=== PATIENT | female | born 1960 | race Caucasian/White ===

== ENCOUNTER → 2017-06-18 | Outpatient (CLI) | payer BC, OTHER ==
--- NOTE | 2017-06-18 14:16 | DIAGNOSTIC IMAGING REPORT ---
R KNEE 4 OR MORE HISTORY: 56 years-old Female RIGHT KNEE PAIN acute right knee pain COMPARISON: None available TECHNIQUE: AP view of the bilateral knees with sunrise, AP axial and lateral views of the right knee FINDINGS: Mild to moderate medial and patellofemoral compartment osteoarthritis. There is mild soft tissue swelling about the right knee without acute fracture or dislocation. Moderate sized joint effusion. No opaque foreign body. IMPRESSION: 1. Moderate-sized joint effusion without acute fracture or dislocation. 2. Mild to moderate medial and patellofemoral compartment osteoarthritis. The above report was generated using voice recognition software. It may contain grammatical, syntax or spelling errors. Electronically signed by: Calos Jj M.D. 06/18/2017 2:15 PM Dictated Date/Time: 06/18/2017 2:13 PM
== END | disposition home or self-care (01) ==
LOC: C.RDSM 13:59
PROVIDERS: ATTEND Family Medicine
DX: M25.561 Pain in right knee (principal); M25.461 Effusion, right knee; M17.11 Unilateral primary osteoarthritis, right knee

== ENCOUNTER 2024-01-17 04:48 | Observation (INO) ==
--- NOTE | 2023-12-11 14:01 | PAT Medication Instructions ---
Medication Instructions Date of Service December 11, 2023 Home Medications calcium 500 mg (as carbonate)-vitamin D3 3.125 mcg (125 unit) tablet 2 tab PO QAM multivitamin 1 tab PO QAM DO NOT take the morning of surgery calcium 500 mg (as carbonate)-vitamin D3 3.125 mcg (125 unit) tablet 2 tab PO QAM multivitamin 1 tab PO QAM MORNING OF SURGERY: NOTHING TO EAT OR DRINK AFTER MIDNIGHT Other Notes If you have any questions please call us at [phone] or [phone] or [phone] or [phone]
--- NOTE | 2023-12-17 10:36 | Anesthesiology Consultation ---
Date of Service December 17, 2023 Assessment & Plan (1) Encounter for pre-operative examination: Plan - awaiting surgeon ordered PCP pre-operative evaluation, Dr. Ady Lanier 12/24. PAT testing to be faxed to PCP. - Patient and her both expressed preference for patient to remain overnight rather than as outpatient joint when booking was confirmed. OR and surgeon's office made aware. Chart Review Chart Review: Pending: Refer to Additional Notes / Consult section and Patient seen in Pre Admission Testing Teaching & Discussion Pre-Anesthesia Teaching/Discussion Notes: Instructed NPO after midnight before surgery, except medications with 15 cc of water. Medication instructions provided according to the PAT guidelines. History Surgery Operation Date: 01/17/24 07:00 Proposed Procedures p Right Total Knee Arthroplasty - Suman Sneed MD Height/Weight Height: 5 ft 8 in Weight: 99.1 kg Allergies Allergy/AdvReac Type Severity Reaction Status Date / Time amoxicillin Allergy Intermediate Rash Verified 12/07/23 09:39 cat dander Allergy Intermediate Itching/Watery Verified 12/07/23 09:39 Eyes, Congestion horse dander Allergy Intermediate Itching/Watery Verified 12/07/23 09:39 Eyes, Congestion penicillin V Allergy Intermediate Rash Verified 12/07/23 09:39 Sulfa (Sulfonamide Allergy Intermediate skin pain, Verified 12/17/23 10:29 Antibiotics) denies rash Medications Home Medications Medication Instructions Recorded Confirmed Last Taken calcium 500 mg (as 2 tab PO QAM 12/07/23 12/07/23 Unknown carbonate)-vitamin D3 3.125 mcg (125 unit) tablet multivitamin 1 tab PO QAM 12/07/23 12/07/23 Unknown Past Medical History Medical History (Updated 12/19/23 @ 13:57 by Nila Mclaughlin PA-C) Adverse effect of anesthesia Vertigo after endometrial ablation DVT (deep venous thrombosis) (~2012) bilat legs> PEs bilat lungs-OCP d/c History of anemia History of palpitations (~2012) with PEs, denies issues at this time History of tachycardia (~2002) elevated caffeine intake-denies issues at this time Hx pulmonary embolism (~2012) warfarin for 6 months - no longer taking Patient denies h/o stroke, seizures, heart attack, heart failure, DM, HTN, or blood transfusions. Exercise / Class Metabolic Activity II 4-5 Yardwork/Stairs/Walk up hill (denies chest discomfort or shortness of breath with one flight of stairs) Past Surgical History Surgical History History of endometrial ablation Hx of colonoscopy 11/2023 Hx of wisdom tooth extraction Status post incision and drainage Right Knee "water balloon" Past Anesthesia History No Family Hx of Anesthesia Complications History of PONV No Hx of PONV and No Hx of Motion Sickness Social History Smoking Status: Never smoker Do You Dip or Chew Tobacco: No Hx Alcohol Use: Yes alcohol intake frequency: a few times a month (during football season) Hx Substance Use: No substance use type: does not use Review of Systems Snoring, denies witnessed apneas. Patient denies chest pain, shortness of breath, dyspnea on exertion, reflux, fever, chills, cough, wheezing, or palpitations. Physical Exam Vital Signs Vitals BP 121/82 P 79 TEMP 98.0 SP02 95% on RA RESP 18 Physical Patient resting comfortably in chair in no acute distress, alert and oriented, responding appropriately throughout visit Full cervical extension range of motion without pain TMD 3.5 finger breadths Mallampati Score 2 Dentition: several crowns, denies chipped or loose teeth, implants or bridges Lungs: normal respiratory effort. Good air movement, clear throughout to auscultation, no adventitious breath sounds Cardiac: regular rate and rhythm, no murmurs noted Carotid arteries: negative bruit bilat Lab Results Anesthesia Preop Results Results Anesthesia Widget: WBC 3.87 K/ul (4.8-10.8) L 12/17/23 Hgb 12.1 g/dl (12.0-16.0) 12/17/23 Hct 36.8 % (37.0-47.0) L 12/17/23 Plt 214 K/uL (130-400) 12/17/23 Na 142 mmol/L (136-145) 12/17/23 K 4.4 mmol/L (3.5-5.1) 12/17/23 Cl 106 mmol/L (98-107) 12/17/23 CO2 29 mmol/L (21-32) 12/17/23 BUN 13 mg/dl (6-23) 12/17/23 Creat 0.75 mg/dl (0.6-1.2) 12/17/23 Glucose Level 108 mg/dl (70-99(Fasting)) H 12/17/23 PT 10.3 Seconds (9.0-12.0) 12/17/23 PTT 24 Seconds (21-31) 12/17/23 INR 0.9 (0.9-1.1) 12/17/23 Urine Color Yellow 12/17/23 Urine Appearance Clear (Clear) 12/17/23 Urine pH 7.5 (4.5-7.5) 12/17/23 Urine Specific [place] 1.022 (1.000-1.030) 12/17/23 Urine Protein Negative (Negative) 12/17/23 Urine Glucose (UA) Negative (Negative) 12/17/23 Urine Ketones Trace (Negative) H 12/17/23 Urine Blood Negative (Negative) 12/17/23 Urine Nitrite Negative (Negative) 12/17/23 Urine Bilirubin Negative (Negative) 12/17/23 Urine Urobilinogen Negative (Negative) 12/17/23 Urine Leukocyte Esterase Trace (Negative) H 12/17/23 Urine WBC (Auto) 0-5 /hpf (0-5) 12/17/23 Urine RBC (Auto) 0-2 /hpf (0-2) 12/17/23 Urine Hyaline Casts (Auto) 0-2 /lpf (0-2) 12/17/23 Urine Epithelial Cells (Auto) 0-2 /hpf (0-2) 12/17/23 Urine Bacteria (Auto) None Seen (None Seen) 12/17/23 Blood Type A Negative 12/17/23 Antibody Screen NEGATIVE 12/17/23 Testing Electrocardiogram Date: 12/17/23 NSR, rate 71 bpm
--- NOTE | 2023-12-21 16:59 | History & Physical Report ---
Date of Service December 21, 2023 Assessment & Plan (1) Osteoarthritis of right knee: Plan: PRE-OP Diagnosis: Right knee degenerative joint disease Planned Procedure: Right total knee arthroplasty Plan: Patient is scheduled to undergo this procedure at the [facility] with Dr. Sneed on January 17, 2024. Risks and complications of the procedure such as: Infection, bleeding, pain, scarring, nerve blood vessel damage, weakness, wound problems, stiffness, incomplete relief of symptoms, hardware failure, hardware loosening, wear, fracture, tendon or ligament injury, blood clots, embolism, cardiac, stroke and were explained to the patient at her visit today and informed consent for the procedure was obtained. We will need to obtain preoperative medical clearance from the patient's primary care provider. She states she has an appointment scheduled for December 24. Patient states that she met with anesthesia on December 16 and while there obtained a CBC with differential, complete metabolic panel, PT/INR, blood type and screen, urinalysis, urine culture and sensitivity, EKG and a nasal culture for MRSA. During today's visit we reviewed the total knee packet. I provided the patient with paperwork to obtain obtaining a handicap placard for her vehicle. I provided her with information about lectures offered by [facility] in regards to joint replacement surgery. I provided her with an order to obtain a walker. I recommended that she purchase a shower chair and raised toilet seat. We discussed discharge planning from the hospital. Patient states she will most likely do in-home physical therapy for the first 2 weeks before transitioning to outpatient physical therapy. I advised the patient that she will be provided with a prescription for narcotic pain medication for postoperative pain control. We will have her on Xarelto for the first 30 days postoperatively for blood clot prevention due to her history of PEs. Patient verbalized understanding of all information provided during today's visit. Patient be scheduled for 2-week postoperative follow-up visit with on January 31. This chart was completed utilizing [employer] voice recognition software. Grammatical errors, random word insertions, pronoun errors, and in complete sentences are an occasional consequence of the system. Any questions or concerns about the content, text, or information contained within the body of this dictation should be addressed directly to the physician for clarification. History of Present Illness Chief Complaint: Chief Complaint: Right knee pain Primary Care Provider: NO PCP History of Present Illness (including history relevant to procedure): This 63-year-old female presents to clinic today for preoperative history and physical. Patient states that she has had persistent right knee pain since 2018. She states that in 2023 she started noticing pain in her left knee. She is not sure if this is compensatory or not. In regards to the right knee she states the pain has not subsided with physical therapy or corticosteroid injections. She states she also had aspirated. Pain increases when she walks downhill or does steps. She has been using meloxicam for a long period of time but does not feel it is very effective. Patient localizes most of the pain over the medial aspect of her knee and feels a crunching sensation with range of motion. She is elected proceed with surgical intervention. Review Of Systems: A 12 point review of systems is performed is unremarkable except for those things stated in the HPI and past medical history. Past Medical History: Problems: Tear of medial meniscus of right knee Effusion of right knee Primary osteoarthritis of right knee Right knee pain Knee pain, right History of DVT and pulmonary emboli Procedure History Procedure Procedure Date Comments None Allergies and Sensitivities: penicillins(rash) sulfa drugs(achy) Current Home Meds: (Last Updated 12/20 13:41) calcium citrate (calcium (as calcium citrate) 250 mg oral tablet) multivitamin 1 tab PO Daily Initial Wt: 12/20 97.2 kg 214 lb Allergies Allergy/AdvReac Type Severity Reaction Status Date / Time amoxicillin Allergy Intermediate Rash Verified 12/07/23 09:39 cat dander Allergy Intermediate Itching/Watery Verified 12/07/23 09:39 Eyes, Congestion horse dander Allergy Intermediate Itching/Watery Verified 12/07/23 09:39 Eyes, Congestion penicillin V Allergy Intermediate Rash Verified 12/07/23 09:39 Sulfa (Sulfonamide Allergy Intermediate skin pain, Verified 12/17/23 10:29 Antibiotics) denies rash Home Medications Medication Instructions Recorded Confirmed Type calcium 500 mg (as 2 tab PO QAM 12/07/23 12/07/23 History carbonate)-vitamin D3 3.125 mcg (125 unit) tablet multivitamin 1 tab PO QAM 12/07/23 12/07/23 History Past Med/Surg History Problem List (Updated 12/21/23 @ 16:58 by Isrrael Dewitt PA-C) Osteoarthritis of right knee Encounter for pre-operative examination Medical History (Updated 12/21/23 @ 16:58 by Isrrael Dewitt PA-C) DVT (deep venous thrombosis) (~2012) bilat legs> PEs bilat lungs-OCP d/c Adverse effect of anesthesia Vertigo after endometrial ablation History of anemia History of palpitations (~2012) with PEs, denies issues at this time History of tachycardia (~2002) elevated caffeine intake-denies issues at this time Hx pulmonary embolism (~2012) warfarin for 6 months - no longer taking Surgical History History of endometrial ablation Status post incision and drainage Right Knee "water balloon" Hx of wisdom tooth extraction Hx of colonoscopy 11/2023 Social History Smoking Status: Never smoker Second Hand Exposure: No; Do You Dip or Chew Tobacco: No; Hx Alcohol Use: Yes Hx Substance Use: No Preferred Language: Uzbek Communication Ability: Effective School Psychological Examiner Required: No Beliefs That Will Affect Care: None Current Living Situation: Spouse Feels Safe at Home: Yes Assistive Devices: Glasses Physical Exam Physical Exam: Physical Exam: (relevant to the procedure, including heart and lung evaluation) General: Alert and oriented x 3 with proper grooming and hygiene Eyes: Pupils are equal reactive to light with accommodation. Extraocular movements are intact Throat: Posterior oropharynx clear with absence of edema, erythema or exudate. Dentition is appropriate Cardiac: Regular rate and rhythm with no murmurs or gallops appreciated Lungs: Clear to auscultation throughout no wheezing, rales or rhonchi Abdomen: Obese, nondistended, nontender with NABS Extremities: Right knee; range of motion is from 2 degrees of extension to 112 degrees of flexion. She has visible varus malalignment. She experiences medial joint tenderness when the knee is palpated in the flexed position. I was able to slightly manipulate her patella. Crepitation. She had no laxity with varus or valgus stressing. AP drawer sign and Arcelia test are negative. Patient is neurovascularly intact in the lower extremity. Neuro: Cranial nerves II through XII are intact no motor or sensory deficit Skin: Normal in appearance no open skin areas or discharge Results & Data Diagnostic Findings Studies (relevant to the procedure): X-rays done today4 viewsof the bilateral knees demonstrate in the right knee she has severe [id number] osteoarthritiswith tricompartmental osteophyte formation.This is significantly worsened from her previous x-rays done back in 2018.In the left knee she has moderate osteoarthritis with medial joint space narrowingand small osteophytes.
[2024-01-17] MEDS: LR 60ML/HR IV SCH (05:53)
[2024-01-17] MEDS: FAMOTIDINE 20 MG TAB PO SCH (05:56)
[2024-01-17] MEDS: Scopolamine 1 MG TDSY TD SCH (05:56)
[2024-01-17] MEDS: traMADol HCL 50 MG TABLET PO SCH (05:56)
[2024-01-17] MEDS: ACETAMINOPHEN 500 MG TAB PO SCH ×2 (05:56→13:33)
[2024-01-17] MEDS: dexAMETHasone**PF** 10 MG/ML VIAL IV SCH (05:57)
[2024-01-17] MEDS: LR 500ML BOLUS, THEN 15ML/HR IV SCH (06:00)
[2024-01-17] MEDS ORDERED: BUPIVACAINE 0.5 % 5 MG/1 ML PF 10ML VIAL ONE (06:20)
[2024-01-17] MEDS ORDERED: ROPIVACAINE 0.5% 5 MG/ML 30 ML VIAL ONE (06:20)
[2024-01-17] MEDS ORDERED: MIDAZOLAM HCL 1 MG/ML 2ML VIAL ONE (06:25)
[2024-01-17] MEDS ORDERED: fentaNYL citrate PF 100 MCG/2 ML VIAL ONE (06:25)
[2024-01-17] MEDS ORDERED: PROPOFOL IV EMULSION 10 MG/ML 20 ML VIAL IV ONE ×3 (06:28→08:18)
[2024-01-17] MEDS ORDERED: KETAMINE HCL 10MG/ML SYR ONE (06:30)
--- NOTE | 2024-01-17 06:38 | History & Physical Bridge Note ---
Date of Service January 17, 2024 History & Physical Bridge Note I have examined the patient, reviewed the History & Physical and in the interval since the performance of the History & Physical I have noted the following changes of clinical significance: no changes noted
[2024-01-17] MEDS: TRANEXAMIC ACID 1,000 MG **IV Pre-op IV SCH (06:45)
[2024-01-17] MEDS: ceFAZolin 2000MG 2,000 MG/15 ML SYR IV SCH ×2 (07:00→15:59)
[2024-01-17] MEDS: ROPIVACAINE 0.5% HCL/PF 246 MG, Ketorolac (*for OR use only*) 30 MG, EPINEPHrine 30MG/3... INFIL SCH (07:36)
[2024-01-17] MEDS: ORTHO JOINT ANESTHETIC ONE (07:37)
[2024-01-17] MEDS ORDERED: fentaNYL citrate PF 100 MCG/2 ML VIAL IV PRN (08:06)
[2024-01-17] MEDS ORDERED: ATROPINE SULFATE 0.1 MG/ML 10ML SYR IV PRN (08:06)
[2024-01-17] MEDS ORDERED: ePHEDrine sulfate 50 MG/ML AMP IV PRN (08:06)
[2024-01-17] MEDS ORDERED: DROPERIDOL 5 MG/2 ML VIAL IV PRN (08:06)
[2024-01-17] MEDS: TRANEXAMIC ACID 1,000 MG **IV Intra-op IV SCH (08:31)
[2024-01-17] MEDS ORDERED: PHENYLEPHRINE 100MCG/ML 5ML SYR ONE (08:36)
--- NOTE | 2024-01-17 09:11 | Operative Report ---
Post Operative Report Pre & Post Diagnosis Operation Date: 01/17/24 07:00 Pre-Op Diagnosis: Right Knee Osteoarthritis Post-Op Diagnosis: Right Knee Osteoarthritis I identified the patient and participated in the time-out.: Yes Procedure Operation Date: 01/17/24 07:00 Actual Procedures p Right Total Knee Arthroplasty(Right) - Suman Sneed MD Surgeon Suman Sneed MD Nursing Home Assistant Administrator Renaldo Oneil DO and STEPHAN Dewitt PA-C. Estimated Blood Loss 100 Findings Consistent with Post-Op Diagnosis Specimens Right knee bone and soft tissue contents Anesthesia Type Spinal MAC Complications none Disposition Disposition: Recovery Room Indications 63-year-old female with right knee osteoarthritis refractory to conservative management. X-rays demonstrate duet-ca-[id number] disease in the medial compartment and tricompartmental osteophyte formation. I had a long discussion with her about the risks and benefits of surgery, alternatives to surgery, and expected outcomes. After reviewing all these she elected to proceed with surgery. All questions were answered. Informed consent was signed. Description of Procedure Patient was identified in the preoperative holding area where the surgical site, right knee, was marked. Spinal anesthetic was placed by anesthesia. Patient was brought back to the operating room, placed on the operating room table, and IV sedation was administered. A bump was placed underneath the ipsilateral hip. All bony prominences were padded. Perioperative antibiotics and tranexamic acid were administered. Exam under anesthesia was performed. This demonstrated patient's range of motion to be 8-105 degrees. Stable to varus and valgus at 30 degrees. The surgical site was prepped and draped in the normal sterile fashion. Prior to incision a multidisciplinary timeout was called. All in the room were in agreement. We began by exsanguinating the limb with an Esmarch bandage. Tourniquet was inflated to 250 mmHg. A 14 cm long incision was made over the anterior aspect of the knee. I dissected through the subcutaneous tissues to the level of the fascia. Full-thickness flaps were raised above the fascia. A median parapatellar arthrotomy was made. Half the fat pad was excised. A medial release was performed with Bovie electrocautery on the proximal tibia. Synovitis in the knee and suprapatellar pouch was removed. The patella was then everted and held with 2 towel clips. The thickness of the patella was measured at 24 mm. Patellar resection was performed. Caliper showed the patella thickness now to be 14 mm. A size 38 trial was placed and had a great fit. The 3 drill holes were placed then the trial button was placed. The patellar thickness was now 24 mm which I was very happy with. The patellar trial was then removed, and the knee was flexed up. Retractors were placed to protect the MCL and LCL. Osteophytes were removed from the femoral condyles and intercondylar notch. The ACL and PCL were excised. Intramedullary drill guide was drilled into the femur. Distal femoral cutting guide was placed set at 5 degrees of valgus to resect 11 mm off the distal femur. Distal femoral resection was made without difficulty. The tibia was then exposed. The lateral meniscus was sharply excised. The tibial cutting jig was positioned in line with the tibial shaft in the coronal plane and with 3 degrees of posterior slope in the sagittal plane to resect 4 mm off the more involved compartment. The jig was then pinned in position and the tibial cut was made. We then brought the knee into full extension. Lamina spreaders were placed. The medial meniscus was excised. The extension block was then placed for 6 mm thickness poly. This gave us full extension and excellent stability to varus and valgus stress. Next the extension block was removed, the knee was flexed up, collateral ligaments were protected, and the epicondylar axis and Whitesides line were marked out on the distal femoral cut. Femoral sizing guide was placed. External rotation was set at 3 degrees so that the posterior cut would be parallel with the epicondylar axis and perpendicular with Whitesides line. The patient sized to a size 6 femur. 2 pins were then placed through the jig into the distal femur. The jig was removed and the appropriately sized 4-in-1 cutting jig was placed over the pins, then fixated to the bone using threaded, headed pins. We confirmed that we would not notch the femur with our anterior cut. Our 4 cuts were then made. The cutting jig was removed. The flexion block was then placed with the knee held at 90 degrees. There was excellent stability to varus and valgus at 90 degrees with no gapping medially or laterally. Next the box cutting jig was placed on the distal femur. The box cut was made and the femoral trial was impacted into position. Lug holes were drilled in the distal femur. We then reexposed the tibia. The tibia was sized to a 6 for a fixed-bearing component. The tibial tray with a 6 mm thickness polyethylene liner was placed on the cut tibial surface and the knee was brought through a full range of motion. There was excellent stability to varus valgus stress throughout a full range of motion, which was approximately 0-120 degrees. Bovie electrocautery was used to agustina the tibia at the site where the tibial tray rested in full extension. We then flexed up the knee, removed the polyethylene liner, and pinned the tibial tray into position to match the cautery agustina. The intramedullary drill followed by the keel punch were used to prepare the tibia. Next the trial components were removed. I then injected the posterior capsule and periosteum with the periarticular injection cocktail. The bone cuts were then irrigated and dried while the cement was mixed on the back table. The femoral component was cemented on first. Excess cement was removed. A lap sponge was placed over the femoral component for protection, then the tibia was subluxated anteriorly. The all polyethylene tibial component was then cemented in place. Again excess cement was removed. The knee was brought into full extension and held there until the cement cured. The patella was cemented and clamped. Dilute Betadine solution was then allowed to soak in the knee while the cement cured. Once the cement was fully cured, the knee was irrigated out, the tourniquet was let down and meticulous hemostasis was ensured. The knee was brought through a full range of motion. I was were very happy with the patella tracking and the stability. We then began to close. Interrupted 0 Vicryl suture was used to repair the patellar retinaculum in [id number] fashion. The quadriceps and patellar tendons were run with #1 Vicryl. The deep dermal layer was closed with interrupted 2-0 Vicryl. Dermabond and Zipline was used for the skin, followed by a Silverlon dressing. A compressive Mateo wrap was placed and the knee was placed into a knee immobilizer. Patient's sedation was lifted and was transferred to recovery room in stable condition. Summary of implants: Depuy Attune Posterior Stabilized Cemented Femur, size 6 right Attune All-polyethylene tibial component, posterior stabilized 6 mm thickness, size 6 Attune patella medialized dome, size 38 2 batches of Palacos high viscosity bone cement Postoperative course: Patient will be admitted to the floor for pain control and monitoring. Weightbearing as tolerated with a walker with no knee range of motion for 48 hours. Xarelto for DVT prophylaxis. I attest to the content of the Intraoperative Record and any orders documented therein. Any exceptions are noted below.
[2024-01-17] MEDS ORDERED: ALUMINUM/MAGNESIUM SUSP 30 ML UDC PO PRN (09:12)
[2024-01-17] MEDS ORDERED: METOCLOPRAMIDE HCL INJ 5 MG/ML 2 ML VIAL IV PRN (09:12)
[2024-01-17] MEDS ORDERED: MAGNESIUM HYDROXIDE SUSP 30 ML UDC PO PRN (09:12)
[2024-01-17] MEDS ORDERED: NALOXONE HCL 0.4 MG/1 ML VIAL/CARP IV PRN (09:12)
[2024-01-17] MEDS ORDERED: ONDANSETRON INJ 2 MG/ML 2 ML VIAL IV PRN (09:12)
[2024-01-17] MEDS ORDERED: HYDROmorphone INJ 0.5 MG/0.5 ML SYR IV PRN (09:12)
[2024-01-17] MEDS ORDERED: oxyCODONE HCL IR 5 MG TAB (IMMEDIATE RELEASE) PO PRN (09:12)
[2024-01-17] MEDS ORDERED: diphenhydrAMINE 50 MG/ML VIAL IV PRN (09:12)
[2024-01-17] MEDS ORDERED: bisacodyL 10 MG SUPP PR PRN (09:12)
--- NOTE | 2024-01-17 09:12 | Operative Report ---
Post Operative Report Pre & Post Diagnosis Operation Date: 01/17/24 07:00 Pre-Op Diagnosis: Right Knee Osteoarthritis Post-Op Diagnosis: Right Knee Osteoarthritis I identified the patient and participated in the time-out.: Yes Procedure Operation Date: 01/17/24 07:00 Actual Procedures p Right Total Knee Arthroplasty(Right) - Suman Sneed MD Surgeon Suman Sneed MD Exercise Science Internship Renaldo Oneil DO; Tho Dewitt PAGeremias Estimated Blood Loss 100 Findings Consistent with Post-Op Diagnosis Specimens knee bone and soft tissue Description of Procedure I was present during the entire case assisting with positioning, prepping, draping, wound retraction, wound closure, dressing and immobilizer placement. Fellow also present. I served as an extra set of hands during the case. Please see Dr. Sneed procedure note for specifics of the case. I attest to the content of the Intraoperative Record and any orders documented therein. Any exceptions are noted below.
--- NOTE | 2024-01-17 09:17 | Operative Report ---
Post Operative Report Pre & Post Diagnosis Operation Date: 01/17/24 07:00 Pre-Op Diagnosis: Right Knee Osteoarthritis Post-Op Diagnosis: Right Knee Osteoarthritis I identified the patient and participated in the time-out.: Yes Procedure Operation Date: 01/17/24 07:00 Actual Procedures p Right Total Knee Arthroplasty(Right) - Suman Sneed MD Surgeon Suman Sneed MD Tube Winder Renaldo Oneil DO; Tho Dewitt PA-Dennis Estimated Blood Loss 100 Findings Consistent with Post-Op Diagnosis Specimens Right knee bone and soft tissue Description of Procedure Patient was brought to the operative suite where she underwent anesthesia. The right lower extremity was prepped and draped in usual sterile fashion. A surgical timeout was performed. The patient went right total knee arthroplasty, please see Dr. Sneed's operative report for full details. I was present and assisted with patient positioning,limb positioning, soft tissue retraction, hemostasis, surgical approach, bony resections, hardware placement, wound closure, postoperative dressing placement. Patient was taken to the recovery room in stable condition. I attest to the content of the Intraoperative Record and any orders documented therein. Any exceptions are noted below.
--- NOTE | 2024-01-17 09:44 | XRay Report ---
XR knee RT 1 or 2V routine HISTORY: 63 years-old Female Surgical Post Op right knee arthroplasty COMPARISON: 12/21/2023 TECHNIQUE: 2 views of the right knee FINDINGS: Total joint arthroplasty with patellar resurfacing. Expected postoperative soft tissue swelling with deep tissue air. No acute fracture or unexpected opaque foreign body. IMPRESSION: Total joint arthroplasty with expected postoperative changes. ACT 112: Negative or not required by law. The above report was generated using voice recognition software. It may contain grammatical, syntax o r spelling errors. Electronically signed by: Franki Jj M.D. 01/17/2024 9:42 AM
[2024-01-17] MEDS: KETOROLAC TROMETHAMINE 15 MG/ML VIAL IV SCH (11:44)
--- NOTE | 2024-01-17 11:49 | Anesthesiology Progress Note ---
Date of Service January 17, 2024 Anesthesia Post Procedure Vital Signs Vital Signs: Temp Pulse Pulse Resp BP BP Pulse Ox 01/17/24 11:14 36.4 C L 60 16 124/80 97 01/17/24 10:40 36.3 C L 55 L 16 122/76 98 01/17/24 10:09 36.8 C 58 L 16 109/72 99 01/17/24 09:40 59 L 17 109/68 95 01/17/24 09:30 36.1 C L 59 L 17 106/68 95 01/17/24 09:20 61 15 108/64 99 01/17/24 09:10 36.0 C L 67 15 110/72 95 01/17/24 05:34 36.9 C 73 20 130/85 97 O2 Del Method O2 Flow Rate 01/17/24 11:14 Room Air 01/17/24 10:40 Room Air 01/17/24 10:09 Room Air 01/17/24 09:40 Room Air 01/17/24 09:30 Room Air 01/17/24 09:20 Oxymask 5 01/17/24 09:10 Oxymask 5 01/17/24 05:34 Room Air Pain Intensity Right Knee: Pain Intensity: 1 Notes Mental Status: alert / awake / arousable Patient Amnestic to Procedure: Yes Nausea / Vomiting: adequately controlled Pain: adequately controlled Airway Patency, RR, SpO2: stable & adequate BP & HR: stable & adequate Hydration State: stable & adequate Neuraxial Anesthesia: was administered and sensory block is resolving Anesthetic Complications: no major complications apparent
[2024-01-17] MEDS: Scopolamine CHECK PATCH PLACEMENT SCH (15:59)
[2024-01-17] MEDS: DOCUSATE SODIUM 100 MG CAP PO SCH (20:59)
[2024-01-17] MEDS: SENNA 8.6 MG TAB PO SCH (20:59)
[2024-01-18 06:29] LABS: Hematocrit (blood only) 30.7 % (37.0-47.0); Hemoglobin 10.3 g/dl (12.0-16.0); Mean Corpuscular Hemoglobin 28.5 pg (25.0-34.0); Mean Corpuscular Hgb Conc 33.6 g/dL (32.0-36.0); Mean Corpuscular Volume 84.8 fL (80.0-100.0); Mean Platelet Volume 10.2 fL (9.4-12.4); Platelet Count 182 K/uL (130-400); RDW Standard Deviation 39.8 fL (36.4-46.3); Red Blood Count 3.62 M/uL (4.20-5.40); White Blood Count 8.69 K/ul (4.8-10.8)
[2024-01-18 06:35] LABS: BUN Creatinine Ratio 19.5 (10-20); Creatinine Clr Calc Pharmacy 82.3 ml/min; Potassium 4.2 mmol/L (3.5-5.1)
[2024-01-18] MEDS: CALCIUM 600MG + VIT D 400 IU TAB PO SCH (08:35)
[2024-01-18] MEDS: MULTIVITAMIN TAB PO SCH (08:35)
[2024-01-18] MEDS: RIVAROXABAN 10 MG TABLET PO SCH (08:35)
[2024-01-18] MEDS: dexAMETHasone 4 MG TAB PO SCH (08:35)
[2024-01-18] MEDS ORDERED: NON-FORMULARY MEDICATION (Multivitamin Tablet) PO SCH (09:00)
[2024-01-18] MEDS: PNEUMOCOCCAL VACCINE (PCV20) 20-VAL CONJ-DIP CRM/PF 0.5 ML SYR IM ONE (10:31)
--- NOTE | 2024-01-18 10:42 | Orthopedic Progress Note ---
Date of Service January 18, 2024 Assessment & Plan (1) S/P total knee arthroplasty: Plan: Weightbearing as tolerated with walker assistance and immobilizer for first 48 hours postop PT/OT Ice with easy wrap Pain control with p.o. medication DVT prophylaxis with TC stockings and Xarelto Keep Silverlon dressing in place until follow-up Plan is to discharge home later today with in-home physical therapy for the first 2 weeks postoperatively Follow-up at [facility] orthopedics as previously scheduled. With questions contact our clinic at [phone]. Admission and Anticipated Discharge Date Admission Date: January 17, 2024 Subjective This 63-year-old female is day 1 status post right total knee arthroplasty. Patient is doing very well this morning. She is anxious to be discharged home. She has completed PT and OT. She states she still has some numbness in her right lower extremity. She denies chest pain, shortness of breath, fever, chills, sweats, nausea, vomiting, diarrhea or difficulty voiding. Review of Systems Review of Systems: All systems reviewed & are unremarkable except as noted in Subjective Physical Exam Physical Exam: Right knee: Outer dressing was removed. Silverlon is clean dry intact left in place. Patient does have some mild edema noted over the anterior aspect of the knee. There is no noted of erythema or ecchymosis. She is able to easily perform an active straight leg raise test and actively dorsi and plantarflex her foot. She is able to actively reach she degrees of extension actively flex to 50 degrees before experiencing discomfort. Her quad strength is 4 out of 5. She is neurovascularly intact right lower extremity. Results & Data Vital Signs (Past 12 Hours) Vital Signs Temp Pulse Resp BP Pulse Ox O2 Del Method 01/18/24 07:18 36.8 C 48 L 18 110/70 99 Room Air 01/18/24 03:36 36.5 C 60 16 95/61 L 96 Room Air 01/17/24 23:00 36.4 C L 45 L 16 96/61 L 95 Room Air Diagnostic Findings Laboratory Results WBC 8.69 K/ul (4.8-10.8) 01/18/24 05:33 RBC 3.62 M/uL (4.20-5.40) L 01/18/24 05:33 Hgb 10.3 g/dl (12.0-16.0) L 01/18/24 05:33 Hct 30.7 % (37.0-47.0) L 01/18/24 05:33 MCV 84.8 fL (80.0-100.0) 01/18/24 05:33 MCH 28.5 pg (25.0-34.0) 01/18/24 05:33 MCHC 33.6 g/dL (32.0-36.0) 01/18/24 05:33 RDW Std Deviation 39.8 fL (36.4-46.3) 01/18/24 05:33 RDW Coeff of Latasha 13.0 % (11.5-14.5) 01/18/24 05:33 Plt Count 182 K/uL (130-400) 01/18/24 05:33 MPV 10.2 fL (9.4-12.4) 01/18/24 05:33 Sodium 140 mmol/L (136-145) 01/18/24 05:33 Potassium 4.2 mmol/L (3.5-5.1) 01/18/24 05:33 Chloride 109 mmol/L (98-107) H 01/18/24 05:33 Carbon Dioxide 25 mmol/L (21-32) 01/18/24 05:33 Anion Gap 6 (3-11) 01/18/24 05:33 BUN 17 mg/dl (6-23) 01/18/24 05:33 Creatinine 0.87 mg/dl (0.6-1.2) 01/18/24 05:33 Est Cr Clr Drug Dosing 82.3 ml/min 01/18/24 05:33 eGFR 75.28 01/18/24 05:33 BUN/Creatinine Ratio 19.5 (10-20) 01/18/24 05:33 Glucose 102 mg/dl (70-99(Fasting)) H 01/18/24 05:33 Calcium 9.0 mg/dl (8.6-10.3) 01/18/24 05:33 Impressions Knee X-Ray 01/17/24 09:13 XR knee RT 1 or 2V routine HISTORY: 63 years-old Female Surgical Post Op right knee arthroplasty COMPARISON: 12/21/2023 TECHNIQUE: 2 views of the right knee FINDINGS: Total joint arthroplasty with patellar resurfacing. Expected postoperative soft tissue swelling with deep tissue air. No acute fracture or unexpected opaque foreign body. IMPRESSION: Total joint arthroplasty with expected postoperative changes. ACT 112: Negative or not required by law. The above report was generated using voice recognition software. It may contain grammatical, syntax or spelling errors. Electronically signed by: Franki Jj M.D. 01/17/2024 9:42 AM
--- NOTE | 2024-01-18 10:43 | Discharge Summary ---
Date of Service January 18, 2024 Admission HPI Per Admitting Provider History of Present Illness (including history relevant to procedure): This 63-year-old female presents to clinic today for preoperative history and physical. Patient states that she has had persistent right knee pain since 2018. She states that in 2023 she started noticing pain in her left knee. She is not sure if this is compensatory or not. In regards to the right knee she states the pain has not subsided with physical therapy or corticosteroid injections. She states she also had aspirated. Pain increases when she walks downhill or does steps. She has been using meloxicam for a long period of time but does not feel it is very effective. Patient localizes most of the pain over the medial aspect of her knee and feels a crunching sensation with range of motion. She is elected proceed with surgical intervention. Review Of Systems: A 12 point review of systems is performed is unremarkable except for those things stated in the HPI and past medical history. Past Medical History: Problems: Tear of medial meniscus of right knee Effusion of right knee Primary osteoarthritis of right knee Right knee pain Knee pain, right History of DVT and pulmonary emboli Procedure History Procedure Procedure Date Comments None Allergies and Sensitivities: penicillins(rash) sulfa drugs(achy) Current Home Meds: (Last Updated 12/20 13:41) calcium citrate (calcium (as calcium citrate) 250 mg oral tablet) multivitamin 1 tab PO Daily Initial Wt: 12/20 97.2 kg 214 lb Admission Exam Per Admitting Provider Physical Exam: (relevant to the procedure, including heart and lung evaluation) General: Alert and oriented x 3 with proper grooming and hygiene Eyes: Pupils are equal reactive to light with accommodation. Extraocular movements are intact Throat: Posterior oropharynx clear with absence of edema, erythema or exudate. Dentition is appropriate Cardiac: Regular rate and rhythm with no murmurs or gallops appreciated Lungs: Clear to auscultation throughout no wheezing, rales or rhonchi Abdomen: Obese, nondistended, nontender with NABS Extremities: Right knee; range of motion is from 2 degrees of extension to 112 degrees of flexion. She has visible varus malalignment. She experiences medial joint tenderness when the knee is palpated in the flexed position. I was able to slightly manipulate her patella. Crepitation. She had no laxity with varus or valgus stressing. AP drawer sign and Arcelia test are negative. Patient is neurovascularly intact in the lower extremity. Neuro: Cranial nerves II through XII are intact no motor or sensory deficit Skin: Normal in appearance no open skin areas or discharge Principal Diagnosis Right knee osteoarthritis Discharge Exam Right knee: Outer dressing was removed. Silverlon is clean dry intact left in place. Patient does have some mild edema noted over the anterior aspect of the knee. There is no noted of erythema or ecchymosis. She is able to easily perform an active straight leg raise test and actively dorsi and plantarflex her foot. She is able to actively reach she degrees of extension actively flex to 50 degrees before experiencing discomfort. Her quad strength is 4 out of 5. She is neurovascularly intact right lower extremity. Discharge Data Allergies Allergy/AdvReac Type Severity Reaction Status Date / Time amoxicillin Allergy Intermediate Rash Verified 01/17/24 05:26 cat dander Allergy Intermediate Itching/Watery Verified 01/17/24 05:26 Eyes, Congestion horse dander Allergy Intermediate Itching/Watery Verified 01/17/24 05:26 Eyes, Congestion penicillin V Allergy Intermediate Rash Verified 01/17/24 05:26 Sulfa (Sulfonamide Allergy Intermediate skin pain, Verified 01/17/24 05:26 Antibiotics) denies rash Procedures Performed Operation Date: 01/17/24 07:00 Actual Procedures p Right Total Knee Arthroplasty(Right) - Suman Sneed MD Ordered Studies 01/17/24 05:00 US - OR guided needle placemen Routine Hospital Course (1) S/P total knee arthroplasty: Patient had a uneventful overnight stay following right total knee arthroplasty. She is very pleased with the results of the surgery. She states that her pain is well-controlled with the p.o. pain medication. She is anxious to be discharged home later this morning. Weightbearing as tolerated with walker assistance and immobilizer for first 48 hours postop PT/OT Ice with easy wrap Pain control with p.o. medication DVT prophylaxis with TC stockings and Xarelto Keep Silverlon dressing in place until follow-up Plan is to discharge home later today with in-home physical therapy for the first 2 weeks postoperatively Follow-up at [facility] orthopedics as previously scheduled. With questions contact our clinic at [phone]. Total Time Total Time Spent Total Time Spent (In Minutes): 25 minutes Discharge Plan Discharge Items Patient Disposition: Home - Home Health Services Reason For Visit: Right Knee Osteoarthritis Discharge Diagnosis: S/P Right total knee arthroplasty Activity: As commented below Lifting: None Bathing: Keep incision dry Bathing Comment: may shower today Sexual Activity: Wait until after follow-up appointment Exercise/Sports: Wait until after follow-up appointment Driving/Machine Use: No driving until cleared by senior care specialist Non-emergency contact: Surgeon Call non-emergency contact if: you have any medication questions, your pain is not controlled, your temperature is above 101.5, your wound has increased drainage and your wound pain has increased Follow-up/Referrals: Ady Lanier, DO [Primary Care Provider] - Diet: Regular Addtl Attending Provider Instructions: Post-operative Instructions Dear Patient and Family/Friends, Before you are discharged from the hospital, it is important to know what to expect when you get home after surgery. To that end, we have created this sheet of discharge instructions which covers many commonly asked questions. Make sure you go through this sheet in its entirety with your nurse before you are discharged. Please note that we will go over the specifics of your surgery and recovery when you return for your first post-operative visit. Sincerely, Dr. Sneed Medications 1. Xarelto 10 mg: take 1 tab daily for 30 days post operatively for blood clot prevention. This will be sent to your pharmacy. 2. Oxycodone 5 mg: take 1-2 tabs every 4-6 hrs as needed for post operative pain control. This will be sent to your pharmacy. 3. Diclofenac Sodium 75 mg: take 1 tab twice daily for 30 days post operatively for pain and inflammation relief. This will be sent to your pharmacy with 1 refill. 4. Extra strength Tylenol 500 mg: take 2 tabs every 6-8 hours as needed additional pain relief. Please purchase. Pain Expect to be in a fair amount of pain after surgery. Remember, our goal is not to eliminate your pain, but to make it tolerable. It is a good idea to stay ahead of your pain by taking the medications you were prescribed once you get home. Typically, the pain starts improving 3-7 days after surgery. You should start weaning off the narcotic pain medication (oxycodone, hydrocodone, hydromorphone, morphine) as soon as your pain improves. Please call our office if your pain is not adequately controlled. Ice Ice your operative site at least 5 times a day for 15-30 minutes at a time. Make sure you have a thin cloth between the ice or cooling unit and your skin to prevent saavedra bite. This is especially important if you received a nerve block. Continue icing your operative site for the first 5-7 days after surgery, then as needed. Diet/Nausea/Vomiting Start by drinking clear liquids and eating crackers. If you can tolerate this, then you may resume your normal diet. If you feel nauseated or vomit, take Zo saran/ondansetron (if prescribed). Please call our office if you have intractable nausea or vomiting, or, if after hours, you may go to the Emergency Room for help. Constipation Constipation is a common side effect of narcotic pain medication. If you have not had a bowel movement within 2 days after surgery, we recommend purchasing an over the counter laxative such as Milk of Magnesia, Dulcolax, or Miralax from a local pharmacy, and taking it as instructed. Call our clinic if any questions. Nerve block The anesthesia team sometimes places a nerve block to help with post-operative pain control. This results in significant numbness and inability to move the extremity. The nerve block usually wears off in 8-12 hours, but sometimes can l ast up to 24 hours. Please call our office if you are still unable to move your extremity after 24 hours, unless you received a pain pump to take home. Nerve blocks typically wear off quickly, so start taking pain medication as soon as you start feeling soreness near your surgical site. Weight bearing and Range of Motion. Do not bear any weight through your operative extremity immediately after surgery. If you had upper extremity surgery, do not lift anything with that arm. If you are in a knee brace, keep it locked in place until your follow-up. We will discuss your weight bearing, range of motion, and lifting restrictions in detail at your first post-operative appointment. Continuous Passive Motion (CPM) Machine If you were prescribed a CPM machine, it will start after your first post- operative appointment, at which time we will give you instructions on the range of motion settings and duration of treatment Physical therapy You will be given a prescription for physical therapy or occupational therapy at your first post-operative appointment. Typically, patients start therapy within 1 week of surgery Wound care and showering We will inspect your wound at your first post-operative visit, and may do a dressing change at that time. Most patients will be in a water-proof dressing that is removed 14 days after surgery. It is normal to see some dried blood on the dressing. Do not remove your dressing, paper strips or sutures yourself unless you are given permission. Showering is allowed the day after surgery. Do not scrub or remove any dressings. The wound should not be submerged underwater (i.e. in a bathtub or pool) until 4 weeks after surgery TC stockings If you were given white stockings, these are to be worn at all times except to shower (on both legs) for the first 2 weeks after surgery. Driving You may not drive while taking narcotic pain medication or while in a cast, splint, sling or brace. You, the patient, need to make the final determination about when you are safe to drive, however, the earliest you may consider driving after surgery is below: Hand/Wrist/Elbow Surgery: 3 days Shoulder Surgery: 2 weeks Hip,/Knee/Ankle Surgery: 4 weeks Fracture repair: 6 weeks Return to Work Your return to work depends on what surgery was done and what type of work you do. Please bring any paperwork your employer needs completed to your first post-operative visit. Also, bring a description of your job duties, as this helps us to understand what risks you may face at work. Travel Avoid long distance travel (greater than 1 hour) in airplanes and cars for the first 6 weeks after surgery. If you must travel, you need to have a Doppler ultrasound done before you travel to rule out a blood clot in your legs. Follow-up You should have a follow-up appointment already scheduled 1-2 days after surgery. If not, please contact our office to make this appointment before you leave the hospital. When to call the office It is normal to have swelling and bruising in the limb that was operated on. This will improve with time. It is also normal to have fevers for the first 2 days after surgery. Reasons you should call your doctor include: Uncontrolled pain; Nausea, vomiting, or constipation that does not improve with medication; Fevers over 101.5, chills, sweats; Drainage or bleeding from the wound; Foul odor; Spreading areas of redness; Any other concerns. Contact Information Please call Dr. Sneed's office at [phone] with any concerns. Pending Studies at Discharge: No Stand-Alone Forms: My [employer] [employer], Smoking Cessation Medications and DC Order Prescriptions: New Xarelto 10 mg Tablet 10 mg PO DAILY 30 Days Qty: 30 0RF acetaminophen [Tylenol Extra Strength] 500 mg Tablet 1,000 mg PO Q8 30 Days Qty: 180 0RF oxycodone 5 mg Tablet 5 - 10 mg PO Q4H MDD max 6/day; ongoing Tx PRN (Reason: Post op pain relief) Qty: 28 0RF diclofenac sodium 75 mg tablet,delayed release (DR/EC) 75 mg PO BID 30 Days Qty: 60 1RF Continued multivitamin Tablet 1 tab PO QAM calcium carbonate-vitamin D3 500 mg-3.125 mcg (125 unit) Tablet 2 tab PO QAM Admission Data Admit Date/Time: 01/17/24 09:13 Attending Provider: Suman Sneed Admit Provider: Suman Sneed Primary Care Provider: Ady Lanier Other Providers: [facility],Home Healthcare; [facility]
--- OUTSIDE RECORDS SUMMARY | 2024-01-18 12:37 | External Medical Summary | Summary of Care ---
Author Name Unknown Organization [facility] Address [address] [place] [address] Phone [phone] Care Team Providers Care Horseback Riding Instructor Name Role Phone Lanier Ady Angelessusu Primary Care Provider Reason for Visit * Reason Comments pre-op exam TKR- right knee. by [facility] sports medLabs and EKG in media Encounter Details Date Type Department Care Team (Late st Contact Info) Description 12/25/2023 10:40 AM EST Office Visit Family Practice [facility] [address] [place] [address] Leana Miller CRNP [address] [place] [address] Pre-op evaluation*; Arthritis of right knee; Obesity, Class I, BMI 30.0-34.9 (see actual BMI); History of pulmonary embolism; History of DVT (deep vein thrombosis); Dyslipidemia, goal LDL below 130 Allergies Active Allergy Reactions Criticality Noted Date Comments Amoxicillin-Pot Clavulanate Rash 02/20/2012 Bactrim Other (Please comment) 09/03/2008 [place] like her skin was crawling with "something" Cat Dander Hives 04/10/2013 documented as of this encounter (statuses as of 12/25/2023) Medications Multiple Vitamins-Calcium (ONE-A-DAY WOMENS FORMULA) Tablet Take 1 Tablet by mouth in the morning. Active Calcium 250 MG Oral Capsule Take by mouth. 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 02/20/2012 01/22/2019 Overview (11/06/2016): ICD-10 update of inactive term Anticoagulation management encounter 02/20/2012 01/22/2019 Other pulmonary embolism and infarction 02/19/2012 12/25/2023 Overview (02/19/2012): b/l documented as of this encounter (statuses as of 12/25/2023) Immunizations Name Administration Dates Next Due COVID-19 mRNA, LNP-s, No Pre serve, 2-Dose Series (Ste[employer]) 10/20/2021,11/30/2020,04/27/2020,2020 COVID-19, MRNA-LNP, PF, 30 M CG/0.3 mL, 12 YRS AND ABOVE, IM (PFIZER-Comirnaty) 10/30/2022 Seasonal Influenza Vac., MDV , IM, 0.5 mL (Fluzone) 11/27/2017,11/10/2016 Seasonal Influenza Virus Vac cine, Unspecified Formulation 10/30/2022,10/20/2021,09/28/2020,2018 Seasonal Influenza, Quadriva lent, No Preserve, Mdck 12/02/2019 TDAP (age 10 and older)(Boostrix) 03/05/2019 TDAP, Age 7 and older, IM (Adacel) 09/03/2008 Zoster Vaccine Recombinant (Shingrix) 06/24/2019 ,03/05/2019 documented as of this encounter Social History Tobacco Use Types Packs/Day Years Used Date Smoking Tobacco: Never Smokeless Tobacco: Never Alcohol Use Standard Drinks/Week Comments No 0 (1 standard drink = 0.6 oz pur e alcohol) PHQ-2 Answer Date Recorded PHQ Adult Total Score 0 07/11/2023 Hunger Vital Sign Answer Date Recorded Within the past 12 months, y ou worried that your food would run out before you got the money to buy more. Never true 04/04/19 24 Within the past 12 months, t he food you bought just didn't last and you didn't have money to get more. Never true 04/04/2023 Childcare Answer Date Recorded Do you feel overwhelmed with taking care of a child, family member or friend? No 04/04/2023 Does your family need help f inding childcare? (Household - for ages 0-17 years) Not on file 04/04/2023 Clothing Answer Date Recorded Have you been unable to get clothing when it was really needed? No 04/04/2023 Is your family able to get c lothes or diapers when needed? (Household - for ages 0-17 years) Not on file 04/04/2023 Personal Safety Answer Date Recorded Do you feel unsafe or have concerns for your saf ety? No 04/04/2023 Do you have concerns for you r family's safety? (Household - for ages 0-17 years) Not on file 04/04/2023 Utilities Answer Date Recorded Do you have trouble paying y our heating, water, or electric bill? No 04/04/2023 Is your family able to pay t he heat, water, or electric bill? (Household - for ages 0-17 years) Not on file 04/04/2023 Does your family have access to good internet? (Household - for ages 0-17 years) Not on file 04/04/2023 Employment Status Answer Date Recorded Are you unemployed or without regular income? No 04/04/2023 Does the household have a re gular source of income? (Household - for ages 0-17 years) Not on file 04/04/2023 Social Connections Answer Date Recorded How often do you feel lonely or isolated from th ose around you? Never 04/04/2023 Financial Resource Strain Answer Date R ecorded Do you have any trouble payi ng for your medications, or do you think you might in the future? No 04/04/2023 Does your family have troubl e paying for medicine? (Household - for ages 0-17 years) Not on file 04/04/2023 Transportation Needs Answer Date Record ed READ ONLY Do you have troubl e getting a ride to medical visits or work? Never True 04/04/2023 Does your family have a hard time getting a ride to doctors visits? (Household - for ages 0-17 years) Not on file 04/04/2023 Has lack of transportation k ept you from medical appointments, meetings, work, or from getting things needed for daily living? Check all that apply. (Adult - for ages 18 years and over) Not on file 04/04/2023 Do you (or your family) have trouble finding or paying for a ride (transportation)? (Household - for ages 0-17 years) Not on file 04/04/2023 Housing Stability Answer Date Recorded Do you currently live in a s helter or have no steady place to sleep at night? No 04/04/2023 READ ONLY Do you think you a re at risk of becoming homeless? No 04/04/2023 Does your family worry about paying for your home or becoming homeless? (Household - for ages 0-17 years) Not on file 0 04/04/2023 Are you homeless or worried that you might be in the future? (Adult - for ages 18 years and over) Not on file Are you (or your family) delma eless or worried that you might be in the future? (Household - for ages 0-17 years) Not on file Food Insecurity Answer Date Recorded Do you need food for this week? No 04/04/2023 Are you able to get enough f ood for your family? (Household - for ages 0-17 years) Not on file 04/04/2023 Does your family need food t his week? (Household - for ages 0-17 years) Not on file 04/04/2023 Do you always have enough fo od for your family? (Household - for ages 0-17 years) Not on file 04/04/2023 Comments No Sex and Gender Information Value Date Recorded Sex Assigned at Female 04/04/2023 2:18 PM EST Legal Sex Female 7:16 AM EST Gender Identity Female 04/04/2023 2:18 PM EST Sexual Orientation Straight 04/04/2023 2: 18 PM EST documented as of this encounter Last Filed Vital Signs Vital Sign Reading Time Taken Comments Blood Pressure 122/64 12/25/2023 10:23 AM EST Pulse 79 12/25/2023 10:23 AM EST Temperature 37.1 C (98.8 F) 12/25/2023 1 0:23 AM EST Respiratory Rate - - Oxygen Saturation 98% 12/25/2023 10: 23 AM EST Inhaled Oxygen Concentration - - Weight 98.8 kg (217 lb 14.4 oz) 024 10:23 AM EST Height 172.7 cm (5' 8") 12/25/2023 10:2 3 AM EST Body Mass Index 33.13 12/25/2023 10:23 AM EST documented in this encounter Nursing Notes * Divya Denise LPN - 12/25/2023 10:26 AM EST The patient has been properly identified by confirmation of name and date of . Chief Complaint Patient presents with pre-op exam TKR- right knee. 01/16 by [employer] sports med Labs and EKG in media documented in this encounter Plan of Treatment Upcoming Encounters Date Type Department Care Team (Late st Contact Info) Description 02/15/2024 9:45 AM EST Imaging Radiology [facility] [address] [address] 08/14/2024 1:20 PM EDT Office Visit Family Practice [facility] [address] [place] [address] Ady Lanier, [address] [place] [address] Health Maintenance Due Date Last Done Comments HIV Screening 1976 Cologuard 2006 Fecal Occult Blood Test 2006 Sigmoidoscopy 2006 COVID-19 Vaccine ( season) 2023 10/30/2022, 10/30/2022, 10/20/2021, Additional history exists Influenza Vaccine (FLU shot) (#1) 2023 10/30/2022, 10/20/2021, 09/28/2020, Additional history exists Mammogram 02/13/2024 02/12/2023, 01/05, 01/02/2022, Additional history exists Depression Screening 07/10/2024 07/11/2023 Pap Smear 04/11/2025 04/11/2022, 12/06, 11/09/2016, Additional history exists Diabetes Screening 12/16/2026 12/17/2023, 0 07/23/2023, 07/23/2023, Additional history exists Cervical Cancer Screening 04/12/2027 HPV/Co-Test 04/12/2027 04/11/2022 Lipid Panel 07/22/2028 07/23/2023, 06/05, 10/30/2011, Additional history exists DTap/Tdap Vaccines (3 - Td or Tdap) 03/05/2029 03/05/2019, 09/03/2008 Colonoscopy 11/18/2033 11/19/2023, 11/05, 04/18/2013, Additional history exists Colorectal Cancer Screening 11/18/2033 Zoster Vaccines Completed 06/24/2019, 03/05/2019 HPV (Gardasil) Vaccine Aged Out No lo nger eligible based on patient's age to complete this topic Hepatitis B Vaccine Aged Out No longe r eligible based on patient's age to complete this topic MENINGOCOCCAL (MENACTRA/MENVEO) Aged Out No longer eligible based on patient's age to complete this topic Pneumococcal Vaccine: Pediatrics (0 to 5 Years) and At-Risk Patients (6 to 64 Years) Aged Out No longer eligible based on patient's age to complete this topic documented as of this encounter Medical Devices Not on filedocumented as of this encounter Visit Diagnoses Diagnosis Pre-op evaluation- Primary Preoperative examination, unspecified Arthritis of right knee Unspecified arthropathy, lower leg Obesity, Class I, BMI 30.0-34.9 (see actual BMI) Obesity, unspecified History of pulmonary embolism Personal history of pulmonary embolism History of DVT (deep vein thrombosis) Personal history of venous thrombosis and embolism Dyslipidemia, goal LDL below 130 Other and unspecified hyperlipidemia documented in this encounter Care Teams Horseback Riding Instructor Relationship Specialty Start Date End Date Ady Lanier DO [address] [address] PCP - General Family Medicine 06/09/23 documented as of this encounter
--- OUTSIDE RECORDS SUMMARY | 2024-01-18 12:37 | External Medical Summary | Summary of Care ---
Author Name Unknown Organization [facility] Address [address] [place] [address] Phone [phone] Care Team Providers Care Pilot Plant Supervisor Name Role Phone Lanier Ady Angelessusu Primary Care Provider Reason for Visit * Reason Comments pre-op exam TKR- right knee. by [facility] sports medLabs and EKG in media Encounter Details Date Type Department Care Team (Late st Contact Info) Description 12/25/2023 10:40 AM EST Office Visit Family Practice [facility] [address] [place] [address] Leana Miller CRNP [address] [place] [address] Pre-op evaluation*; Arthritis of right knee; Obesity, Class I, BMI 30.0-34.9 (see actual BMI); History of pulmonary embolism; History of DVT (deep vein thrombosis); Dyslipidemia, goal LDL below 130 Allergies Active Allergy Reactions Criticality Noted Date Comments Amoxicillin-Pot Clavulanate Rash 02/20/2012 Bactrim Other (Please comment) 09/03/2008 [place] like her skin was crawling with "something" [...] Date Resolved Date UTI symptoms 06/16/2020 04/11/2022 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 01/16 by [employer] sports med Labs and EKG in media documented in this encounter Plan of Treatment Upcoming Encounters Date Type Department Care Team (Late st Contact Info) Description 02/15/2024 9:45 AM EST Imaging Radiology [facility]st [facility] [address] [address] 08/14/2024 1:20 PM EDT Office Visit Family Practice [facility] [address] [place] [address] Ady Lanier, [address] [address] Health Maintenance Due Date Last Done Comments [...] hyperlipidemia documented in this encounter Care Teams Pilot Plant Supervisor Relationship Specialty Start Date End Date Ady Lanier DO [address] [id number] PCP - General Family Medicine 06/09/23 documented as of this encounter
--- NOTE | 2024-01-22 14:47 | Anesthesiology Progress Note ---
Date of Service January 17, 2024 Anesthesia Post Procedure Pain Intensity Right Knee: Pain Intensity: 1 Transfer of Care Handoff Completed per policy Notes Mental Status: alert / awake / arousable Patient Amnestic to Procedure: Yes Nausea / Vomiting: adequately controlled Pain: adequately controlled Airway Patency, RR, SpO2: stable & adequate BP & HR: stable & adequate Hydration State: stable & adequate Anesthetic Complications: no major complications apparent and Pt Satisfied with anesthetic care
== END 2024-01-18 11:11 | disposition home health service (06) ==
LOC: ASU 04:48 → 3E 04:48
DX: M65.90 Unspecified synovitis and tenosynovitis, unspecified site; M25.561 Pain in right knee; M17.11 Unilateral primary osteoarthritis, right knee; Z88.0 Allergy status to penicillin; Z01.818 Encounter for other preprocedural examination; Z01.812 Encounter for preprocedural laboratory examination; Z86.711 Personal history of pulmonary embolism; Z88.2 Allergy status to sulfonamides; Z88.1 Allergy status to other antibiotic agents; Z86.718 Personal history of other venous thrombosis and embolism; R39.89 Other symptoms and signs involving the genitourinary system; Z79.899 Other long term (current) drug therapy; Z01.810 Encounter for preprocedural cardiovascular examination